=== PATIENT | male | born 1990 | race Caucasian/White ===

== ENCOUNTER → 2020-11-06 | Outpatient (CLI) | payer BC, OTHER ==
--- NOTE | 2020-11-06 22:06 | US ---
EXAMINATION TYPE: US pelvic limited DATE OF EXAM: 11/06/2020 COMPARISON: NONE CLINICAL HISTORY: R10.9 ABD PAIN,R19.09 MASS RT FEMORAL. RLQ pain. Patient states having palpables a t right inguinal canal. Bladder- Anechoic, distended -Bilateral jets seen No prominent masses or fluid collections seen in pelvis. Area of palpables scanned in right groin. Lymph node appearing lesions seen. 1- 0.9 x 0.6 x 0.4 cm 2- 1.0 x 0.6 x 0.4 cm Urinary bladder is sonolucent. Posterior wall is normal. IMPRESSION: 1. Small lymph nodes are present at the palpable abnormality right inguinal region
== END | disposition home or self-care (01) ==
LOC: RADUSWWP 16:23
PROVIDERS: ATTEND Family Medicine
DX: R93.5 Abnormal findings on diagnostic imaging of other abdominal regions, including retroperitoneum (principal)
CPT/HCPCS: 76857